=== PATIENT | male | born 1985 | race Hispanic/Latino ===

== ENCOUNTER 2019-01-04 19:48 | Emergency (ER) | payer SELFPAY ==
[~2019-01-04] VITALS: Ht 170.2 cm; Wt 88.9 kg
== END 2019-01-04 20:27 | disposition home or self-care (01) ==
LOC: ER 19:48
DX: R50.9 Fever, unspecified (principal); J11.1 Influenza due to unidentified influenza virus with other respiratory manifestations
CPT/HCPCS: 99282

== ENCOUNTER 2022-07-17 12:46 | Emergency (ER) | payer SELFPAY ==
[~2022-07-17] VITALS: Ht 170.2 cm; Wt 88.9 kg
[2022-07-17 12:51] VITALS: O2SAT 99
[2022-07-17] MEDS ORDERED: DEXAMETHASONE 4 MG TAB PO STA (12:56)
[2022-07-17] MEDS ORDERED: TRIAMCINOLONE A15 G1 TOP (13:00)
== END 2022-07-17 13:10 | disposition home or self-care (01) ==
LOC: ER 12:55
DX: R21 Rash and other nonspecific skin eruption (principal); L29.9 Pruritus, unspecified
CPT/HCPCS: 99283; J8540